=== PATIENT | male | born 1950 | race Caucasian/White ===

== ENCOUNTER 2016-12-02 15:21 | Emergency (ER) | payer OTHER ==
[2016-12-02 15:35] VITALS: BP 177/77; PULSE 75; RESP 18; TEMP 97.9; O2SAT 92
--- NOTE | 2016-12-02 16:37 | UCPHY ---
H & P Time Seen by Provider: 12/02/16 15:32 Patient Type: New HPI/ROS: CHIEF COMPLAINT: right great toe laceration HISTORY OF PRESENT ILLNESS: 66-year-old male presents reporting a laceration that he sustained to his right great toe 2 days ago. Patient was slicing vegetables in the kitchen when the knife fell off the counter and cut the tip of his great toe. Patient reports he cleaned and wrapped it really well, took the dressing off today and it continued to bleed. He states his tetanus is up- to-date, denies numbness or tingling in this foot, patient has a history of non insulin-dependent diabetes, he denies history of neuropathies. He is a daily smoker. Smoking Status: Current every day smoker Physical Exam: GEN: Awake, alert, oriented, no acute distress RESP: nl resp effort MSK: Right great toe with full flexion and extension at IP joint and MCP joint , sensation intact to light touch, cap refill less than 2 seconds SKIN: 2 cm flap laceration to tip of right great toe, no nail involvement. Constitutional: Initial Vital Signs Temperature (C) 36.6 C 12/02/16 15:32 Heart Rate 75 12/02/16 15:32 Respiratory Rate 18 12/02/16 15:32 Blood Pressure 177/77 H 12/02/16 15:32 O2 Sat (%) 92 12/02/16 15:32 O2 Delivery Mode Room Air Allergies/Adverse Reactions: No Known Allergies Allergy (Unverified 04/22/12 08:09) Home Medications: Medication Instructions Recorded Simvastatin [Zocor 20 mg (RX)] 20 mg PO DAILY18 04/22/12 metFORMIN HCL [Glucophage 500 mg 1,500 mg PO BIDMEAL 04/22/12 (RX)] Allopurinol 12/02/16 Cephalexin [Keflex] 500 mg PO TID 5 Days 12/02/16 Lisinopril 12/02/16 MDM/Departure - [facility] Procedures: Procedure: Laceration repair. Verbal consent was obtained from the patient. The 2 cm laceration on the right great toe was anesthetized using digital block with 1% lidocaine without epinephrine. The wound was carefully irrigated by the emergency department scada technician. Next, the wound was prepped and draped in sterile fashion and explored to its base with a gloved finger. There were no deep structures involved. No tendon injury was identified. No vascular injury was identified. No foreign bodies were identified. The wound was repaired with Steri-Strips. The wound repair was simple. The procedure was performed by myself. Tetanus and antibiotic status were addressed. - Depart Disposition: Home, Routine, Self-Care Clinical Impression: Laceration of right great toe Qualifiers: Encounter type: initial encounter Qualifier Code: (S91.111A) Laceration without foreign body of right great toe without damage to nail, initial encounter Condition: Good Instructions: Laceration (ED), Steristrips (ED) Additional Instructions: Elevate your foot, keep your Steri-Strips in place until they fall off, wash daily with soap and water starting in 72 hours. Take your antibiotics as prescribed 3 times a day for 5 days. Return immediately for any redness, drainage, pain. Prescriptions: Cephalexin [Keflex] 500 mg PO TID 5 Days Referrals: Sheldon Lagunas MD [Primary Care Provider] - As per Instructions - PQRS PQRS Measurement: 134: Depression screening and followup, PRIME MD-PHQ2 (12 years and older) Over the last 2 weeks, how often have you been bothered by any of the following problems? 1. Feeling down, depressed, or hopeless? 2. Little interest or pleasure in doing things? Patient answered no to both 1 and 2 . 130: Documentation of medications. Reviewed all patient medications, doses, route and frequency. 226: Do you smoke? Yes, counseled to stop. 47: 65 and older: Advanced care planning. Patient has advanced directive. 51: 18 years old and older with diagnosis of COPD, spirometry performance. Patient has no history of COPD
== END 2016-12-02 18:05 | disposition home or self-care (01) ==
LOC: CED 15:21
PROC: 0HQMXZZ Repair Right Foot Skin, External Approach (ICD-10-PCS; principal; 2016-12-02)
DX: S91.111A Laceration without foreign body of right great toe without damage to nail, initial encounter (principal); W26.0XXA Contact with knife, initial encounter; Y93.G1 Activity, food preparation and clean up; Y92.010 Kitchen of single-family (private) house as the place of occurrence of the external cause; Y99.8 Other external cause status
CPT/HCPCS: 12001; G0463; 64450-PO; 99203-PO

== ENCOUNTER → 2017-06-18 | Outpatient (CLI) | payer OTHER | LOC: FCPNEURO 21:00 | PROVIDERS: ATTEND Internal Medicine Sleep Medicine | DX: G47.33 Obstructive sleep apnea (adult) (pediatric) (principal); G47.61 Periodic limb movement disorder ==